=== PATIENT | female | born 1935 | race Caucasian/White ===

== ENCOUNTER 2018-12-23 16:49 | Emergency (ER) | payer MEDICARE, OTHER ==
[2018-12-23 18:32] LABS: #Eosinphils 0.3 thou/uL (0.0-0.7); #Lymphocytes 1.2 thou/uL (1.20-3.40); #Neutrophils 7.3 thou/uL (1.40-6.50); %Basophils 0.3 % (0.0-1.0); %Eosinophils 2.8 % (0.0-10.0); %Lymphocytes 12.4 % (21.0-51.0); %Monocytes 10.3 % (0.0-10.0); %Neutrophils 74.2 % (42.0-75.0); Hemoglobin 11.5 g/dL (12.0-16.0); Mean Corpuscular Hemoglobin 27.2 pg (27.0-31.0); Mean Corpuscular Volume 85.1 fL (78.0-98.0); Mean Platelet Volume 6.9 fL (7.4-10.4); Platelet Count 379 thou/uL (130-400); RBC Distribution Width 13.7 % (11.5-14.5); Red Blood Cell (RBC) Count 4.24 mill/uL (4.20-5.40); White Blood Cell (WBC) Count 9.9 thou/uL (4.8-10.8)
[2018-12-23 18:40] LABS: INR-International Normal Ratio 1.9; Prothrombin Time 21.8 SEC (12.0-14.7)
[2018-12-23 18:41] LABS: PTT 45.7 SEC (22.9-36.1)
--- NOTE | 2018-12-23 18:52 | CT ---
CT BRAIN WITHOUT CONTRAST: HISTORY: Fell today, hit head. The patient is on Coumadin. COMPARISON: 04/26/2017 FINDINGS: There is generalized ventricular and sulcal prominence. 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 There are no signs of intracerebral hemorrhage or extraaxial fluid collections. There is a left frontal scalp hematoma. No underlying fracture. The mastoid air cells and visualized sinuses are clear. IMPRESSION: No acute intracranial abnormalities. POS: RUSLANH
[2018-12-23 18:55] LABS: ALT (SGPT) 21 U/L (8-55); AST (SGOT) 31 U/L (5-34); Alkaline Phosphatase 56 U/L (40-150); Anion Gap 17 mmol/L (10-20); BUN (Urea Nitrogen) 19 mg/dL (9.8-20.1); Calc. Creatinine Clearance 0 mL/min (70-130); Carbon Dioxide 28 mmol/L (23-31); Chloride 96 mmol/L (98-107); Estimated GFR-MDRD 51; Globulin 3.3 g/dL (2.4-3.5); Glucose 177 mg/dL (83-110); Potassium 3.6 mmol/L (3.5-5.1); Protein, Total 7.3 g/dL (6.0-8.3); Sodium 137 mmol/L (136-145)
== END 2018-12-23 18:44 | disposition home or self-care (01) ==
LOC: ERS 16:49
DX: S00.83XA Contusion of other part of head, initial encounter (principal); I48.91 Unspecified atrial fibrillation; E11.9 Type 2 diabetes mellitus without complications; Z79.899 Other long term (current) drug therapy; Z86.73 Personal history of transient ischemic attack (TIA), and cerebral infarction without residual deficits; Z79.01 Long term (current) use of anticoagulants; Z79.84 Long term (current) use of oral hypoglycemic drugs; Z79.891 Long term (current) use of opiate analgesic; W01.198A Fall on same level from slipping, tripping and stumbling with subsequent striking against other object, initial encounter
CPT/HCPCS: 70450; 80053; 85025; 85610; 85730

== ENCOUNTER 2019-02-02 19:14 | Inpatient (IN) | payer MEDICARE ==
--- NOTE | 2019-02-02 21:02 | CT ---
CTA THORAX WITH CONTRAST: 02/02/19 at 8:39 p.m. (Computed Tomographic Angiography, chest(noncoronary) with contrast material, and image postprocessin g) (PE protocol) HISTORY: 83-year-old female with dyspnea and hypoxemia. TECHNIQUE: IV injection of iodinated contrast: Isovue. Scan acquisition timing attempted to coincide with iodinated contrast bolus reaching maximal density in pulmonary arteries. 3D MIP reconstructions. FINDINGS: There is a broad region of alveolar infiltrate involving the right lower lobe, consistent with pneumo ki. There is no pulmonary thromboembolism in the pulmonic trunk, left and right main pulmonary arter ies, their proximal branches, or in the upper lobe peripheral branches. There is breathing motion art ifact at the lower lobes, plus streak artifact from the patient's arms, which were not elevated, nayely ng it difficult to evaluate the peripheral basilar lower lobe pulmonary artery branches, especially o n the right. No thoracic aortic aneurysm or dissection. No pleural effusion. There is mild cardiomega ly with four chamber dilation. No pleural effusion or pneumothorax. Trachea and left and right mainst em bronchi are patent and clear. The branches of the right lower lobe bronchus appear to be narrowed, but this is poorly visualized. IMPRESSION: 1. Evidence for right lower lobe pneumonia. 2. Cardiomegaly. 3. No central pulmonary thromboembolism. jn[] POS: JIN
[2019-02-02] MEDS ORDERED: cefTRIAXone\\ROCEPHIN 1 GM in Sodium Chloride 0.9% 100 ML IVPB SCH (22:30)
[2019-02-02] MEDS ORDERED: Azithromycin 500 MG in Sodium Chloride 0.9% 250 ML 250 ML IVPB SCH (23:00)
[2019-02-02 23:58] VITALS: BMI 26.6
[2019-02-03] MEDS: Acetaminophen 325 MG TAB PO PRN ×2 (01:53→22:42)
[2019-02-03 06:19] LABS: #Lymphocytes 0.7 thou/uL (1.20-3.40); #Monocytes 0.2 thou/uL (0.11-0.59); #Neutrophils 2.7 thou/uL (1.40-6.50); %Basophils 0.6 % (0.0-1.0); %Eosinophils 0.2 % (0.0-10.0); %Lymphocytes 19.4 % (21.0-51.0); %Monocytes 6.6 % (0.0-10.0); %Neutrophils 73.3 % (42.0-75.0); Hemoglobin 12.9 g/dL (12.0-16.0); Mean Corpuscular HGB CONC 32.3 g/dL (32.0-36.0); Mean Corpuscular Hemoglobin 27.3 pg (27.0-31.0); Mean Corpuscular Volume 84.3 fL (78.0-98.0); Mean Platelet Volume 7.6 fL (7.4-10.4); Platelet Count 261 thou/uL (130-400); RBC Distribution Width 14.4 % (11.5-14.5); Red Blood Cell (RBC) Count 4.72 mill/uL (4.20-5.40); White Blood Cell (WBC) Count 3.7 thou/uL (4.8-10.8)
[2019-02-03 06:38] LABS: Anion Gap 14 mmol/L (10-20); BUN (Urea Nitrogen) 22 mg/dL (9.8-20.1); Calc. Creatinine Clearance 47 mL/min (70-130); Calcium 9.5 mg/dL (7.8-10.44); Carbon Dioxide 30 mmol/L (23-31); Chloride 93 mmol/L (98-107); Estimated GFR-MDRD 45; Glucose 396 mg/dL (83-110); Potassium 4.2 mmol/L (3.5-5.1); Sodium 133 mmol/L (136-145)
--- NOTE | 2019-02-03 06:41 | HP ---
PRIMARY CARE DOCTOR: Dr. Carr. CHIEF COMPLAINT: Shortness of breath. HISTORY OF PRESENT ILLNESS: This is an 83-year-old female patient with past medical history of sore throat, atrial fibrillation, diabetes, came to the hospital after having shortness of breath. The symptoms were severe. The patient was not able to do her activities of daily living due to the shortness of breath. The patient presented with low saturation, needing oxygen, to keep saturation of 90%. The patient also has some associated chest pain that seems to be pleuritic, also associated cough. REVIEW OF SYSTEMS: CONSTITUTIONAL: No fever, chills. The patient reported generalized weakness. No ability to do activities of daily living. RESPIRATORY: The patient presented with cough, scant sputum production, and shortness of breath. CARDIOVASCULAR: No chest pain or palpitation. GASTROINTESTINAL: No nausea, no vomiting, diarrhea, or abdominal pain. CENTRAL NERVOUS SYSTEM: No dizziness, headache, or feeling lightheaded. GENITOURINARY: No burning on urination. EXTREMITIES: No leg swelling. All other systems were reviewed and negative except for the findings mentioned above. PAST MEDICAL HISTORY: As mentioned in the HPI. She also has a history of hypertension. SURGICAL HISTORY: Hip replacement and right knee replacement. FAMILY HISTORY: Reviewed and non contributory to current presentation. SOCIAL HISTORY: Lives at home alone. No alcohol. No drugs. No smoking history. ALLERGIES: KNOWN ALLERGIES TO CODEINE, FOOD ALLERGIES, HYDROCODONE, MORPHINE, LATEX. REPORTED MEDICATIONS: 1. Fenofibrate. 2. Warfarin. 3. Byetta. 4. Lisinopril. 5. Hydrochlorothiazide. 6. Quetiapine. 7. Zetia. 8. Digoxin. PHYSICAL EXAMINATION: VITAL SIGNS: On presentation, blood pressure 167/96 with heart rate 85, respiratory rate was 17, temperature 98.8. Pain was 0/10. Oxygen saturation on room air was measured at 93% in ER. GENERAL APPEARANCE: The patient is alert and oriented, not in acute distress. HEENT: Eyes, normal conjunctivae. Moist oral mucosa. Anicteric. No JVD. RESPIRATORY: Bilateral air entry. No rales. No wheezes. Symmetric expansion. CARDIOVASCULAR: Normal rate. Regular rhythm. No murmurs. No gallop. No edema. ABDOMEN: Soft. Normal bowel sounds. MUSCULOSKELETAL: Baseline range of motion and strength. No tenderness. SKIN: Warm, intact. No pallor. No rash. No redness. Peripheral pulses are present. Capillary refill seems to intact. NEUROLOGIC: No evidence of any new focal weakness. Baseline speech. Cranial nerves seems to be intact. PSYCHIATRIC: The patient has good mood. No anxiety. Optimal judgment. IMAGING DATA: Chest CTA was done to rule out pulmonary embolism. The patient has evidence for right lower lobe pneumonia and cardiomegaly. LABORATORY DATA: Reviewed. The patient has white count of 6.4, hemoglobin 9.7 , MCV 82.4, platelet count 236. Coagulation; PT 20.6, PTT 37.7. D-dimer 0.87. Chemistry; sodium 135, potassium 3.9, chloride 94, carbon dioxide 28, anion gap 17, BUN 18, GFR creatinine 0.9, GFR glucose 205, calcium 9.2. LFTs were normal. ASSESSMENT AND PLAN: The patient will be placed in the hospital with following medical problems: 1. Left lower lobe pneumonia seen on the CAT scan. The patient has been started on antibiotics. To justify the symptoms on presentation, we will reconcile her antibiotics as per sensitivity from blood culture. 2. Hyponatremia. Sodium 135, this is minimal. No need for acute intervention at this point. 3. Uncontrolled diabetes, presented with hyperglycemia, reconcile home medications, treat the patient with sliding scale for optimal control. 4. Acute hypoxic respiratory failure. The patient presented with hypoxia needing nasal cannula, oxygen saturation of 90%. This is due to pneumonia. We will treat underlying condition. 5. Uncontrolled blood pressure. The patient presented with systolic blood pressure of 167. Reconcile home medications. We will adjust treatment as needed. We will not treat aggressively due to underlying infection. 6. Deep venous thrombosis prophylaxis. Job ID: [id number] [facility]
[2019-02-03] MEDS: Enoxaparin Sodium 40 MG/0.4 ML SYRINGE SC SCH (07:55)
[2019-02-03] MEDS ORDERED: Warfarin Sodium 1 MG TAB PO SCH (17:00)
--- NOTE | 2019-02-03 17:20 | PDOC.PN ---
- Subjective Encounter Start Date: 02/03/19 Encounter Start Time: 10:00 Pt seen for followup re: pneumonia. says she feels well. Cough+. - Objective Resuscitation Status - Order Detail: 02/02/19 22:16 Resuscitation Status Routine Resuscitation Status: FULL: Full Resuscitation Vital Signs & Weight: Vital Signs (12 hours) Temp Pulse Resp BP Pulse Ox 02/03/19 16:49 97.9 F 119 H 20 132/85 94 L 02/03/19 11:25 97.1 F L 99 20 113/77 95 02/03/19 08:00 98.0 F 92 20 131/85 94 L Weight Weight 175 lb 4 oz I&O: 02/02/19 02/03/19 02/04/19 06:59 06:59 06:59 Intake Total 310 480 Balance 310 480 Result Diagrams: 02/03/19 05:25 02/03/19 05:25 Phys Exam - Physical Examination Constitutional: NAD HEENT: moist MMs Neck: supple Respiratory: clear to auscultation bilateral Cardiovascular: RRR Gastrointestinal: soft Neurological: moves all 4 limbs Psychiatric: normal affect Dx/Plan (1) Pneumonia Code(s): J18.9 - PNEUMONIA, UNSPECIFIED ORGANISM Status: Acute Comment: Improved, switch to oral antibiotics (2) Atrial fibrillation Code(s): I48.91 - UNSPECIFIED ATRIAL FIBRILLATION Status: Chronic Comment: continue digoxin, warfarin (3) DM2 (diabetes mellitus, type 2) Status: Chronic Comment: start accuchecks, insulin sliding scale (4) Acute respiratory failure with hypoxia Code(s): J96.01 - ACUTE RESPIRATORY FAILURE WITH HYPOXIA Status: Resolved - Plan * . Review of Systems - Review of Systems Constitutional: negative: fever, chills, sweats, weakness, malaise Respiratory: Cough, Sputum. negative: Dry, Shortness of Breath, Hemoptysis, SOB with Excertion, Pleuritic Pain, Wheezing Cardiovascular: negative: chest pain, palpitations, orthopnea, paroxysmal nocturnal dyspnea, edema, light headedness - Medications/Allergies Allergies/Adverse Reactions: Allergies Allergy/AdvReac Type Severity Reaction Status Date / Time No Known Allergies Allergy Verified 02/03/19 00:02 Medications: Current Medications Acetaminophen (Tylenol) 650 mg PO Q4H PRN PRN Reason: Headache/Fever/Mild Pain (1-3) Last Admin: 02/03/19 01:53 Dose: 650 mg Cefdinir (Omnicef) 300 mg PO BID [facility] Digoxin (Lanoxin) 0.125 mg PO DAILY [facility] Ezetimibe (Zetia) 10 mg PO DAILY [facility] Enoxaparin Sodium (Lovenox) 40 mg SC 0900 [facility] Last Admin: 02/03/19 07:55 Dose: 40 mg Hydrochlorothiazide (Hydrochlorothiazide) 25 mg PO DAILY [facility] Azithromycin 500 mg/ Sodium (Chloride) 250 mls @ 250 mls/hr IVPB Q24HR [facility] Non-Formulary Medication (Exenatide [Byetta]) 10 mcg SC BID-AC [facility] Non-Formulary Medication (Fenofibrate [Fenofibrate]) 160 mg PO HS [facility] Quetiapine Fumarate (Seroquel) 25 mg PO DAILY [facility]
[2019-02-03] MEDS ORDERED: Dextrose 5% in Water 1,000 ML IV PRN (17:23)
[2019-02-03] MEDS ORDERED: Dextrose 50% Abboject 50 ML SYRINGE SLOW IVP PRN (17:23)
[2019-02-03] MEDS ORDERED: HumaLOG 300 UNITS/3 ML VIAL SC PRN ×3 (17:23→22:09)
[2019-02-03] MEDS: Cefdinir 300 MG CAP PO SCH (20:30)
[2019-02-03] MEDS ORDERED: Insulin Glargine 15 UNITS in Pre-Filled Syringe 1 EACH SC SCH (22:30)
[2019-02-03] MEDS ORDERED: cefTRIAXone\\ROCEPHIN 1 GM in Sodium Chloride 0.9% 100 ML IVPB SCH (22:30)
[2019-02-03] MEDS ORDERED: Azithromycin 500 MG in Sodium Chloride 0.9% 250 ML 250 ML IVPB SCH (23:00)
[2019-02-04 04:02] VITALS: TEMP 97.6
[2019-02-04 06:14] LABS: INR-International Normal Ratio 1.8; Prothrombin Time 21.1 SEC (12.0-14.7)
[2019-02-04 07:23] VITALS: BP 137/84
[2019-02-04] MEDS ORDERED: Exenatide [Byetta] 10 MCG SC SCH (07:30)
[2019-02-04] MEDS: Enoxaparin Sodium 40 MG/0.4 ML SYRINGE SC SCH (08:35)
[2019-02-04] MEDS: Cefdinir 300 MG CAP PO SCH (08:35)
[2019-02-04] MEDS ORDERED: Digoxin 0.125 MG TAB PO SCH (09:00)
[2019-02-04] MEDS ORDERED: Fenofibrate Nanocrystallized 145 MG TAB PO SCH (09:00)
[2019-02-04] MEDS ORDERED: Ezetimibe 10 MG TAB PO SCH (09:00)
[2019-02-04] MEDS ORDERED: Lisinopril 10 MG TAB PO SCH (09:00)
[2019-02-04] MEDS ORDERED: Hydrochlorothiazide 25 MG TAB PO SCH (09:00)
--- NOTE | 2019-02-05 05:57 | DIS ---
DATE OF ADMISSION: 02/02/2019 DATE OF DISCHARGE: 02/04/2019 PRIMARY CARE PROVIDER: Waylon Robertson MD DISCHARGE DIAGNOSES: 1. Pneumonia. 2. Hyponatremia. CONDITION OF PATIENT ON THE DAY OF DISCHARGE: Stable. I assessed Ms. Julien on the day of discharge. She denies any chest pain or shortness of breath. Vital signs are stable. S1 and S2 are heard, regular. Lungs are clear to auscultation bilaterally. DISCHARGE MEDICATIONS: 1. Digoxin 125 mcg daily. 2. Byetta 10 mcg subcutaneously two times a day. 3. Zetia 10 mg daily. 4. Fenofibrate 160 mg at bedtime. 5. Hydrochlorothiazide 25 mg daily. 6. Lisinopril 10 mg daily. 7. Quetiapine 25 mg daily. 8. Warfarin as directed. 9. Azithromycin 250 mg daily for 4 more days. 10. Cefdinir 300 mg 2 times a day for 10 days. HOSPITAL COURSE: Ms. Julien is a pleasant 83-year-old lady, who was admitted to [facility] on February 02, 2019, for pneumonia. Please refer to Dr. Tran's history and physical note dated February 03, 2019 for further details. She improved with antibiotics. She is being discharged home on oral antibiotics. She is advised to follow up with her primary care provider for INR checks while she is on the antibiotics. Many thanks for allowing me to participate in your patient's care. Please feel free to contact me with any questions or concerns. DISCHARGE DESTINATION: Home. TOTAL AMOUNT OF TIME FOR COORDINATING THIS DISCHARGE: 31 minutes. Job ID: [id number]
== END 2019-02-04 15:06 | disposition home or self-care (01) | DRG 193 ==
LOC: ERS 19:14 → T4-B 21:00 → OBSVTOIN 23:47
PROVIDERS: ADMIT Emergency Medicine; ATTEND Emergency Medicine
DX: J18.9 Pneumonia, unspecified organism (principal); J96.01 Acute respiratory failure with hypoxia; E87.1 Hypo-osmolality and hyponatremia; E11.9 Type 2 diabetes mellitus without complications; I10 Essential (primary) hypertension; I48.91 Unspecified atrial fibrillation; Z96.651 Presence of right artificial knee joint; Z96.649 Presence of unspecified artificial hip joint; Z88.5 Allergy status to narcotic agent; Z91.040 Latex allergy status
CPT/HCPCS: 36415; 36416; 71275; 80048; 85025; 85610; 87040; 96365; J0456; J0696; J1650; J1825; J1956; J7050

== ENCOUNTER 2019-10-28 17:37 | Emergency (ER) | payer MEDICARE ==
[2019-10-28 18:27] LABS: #Eosinphils 0.2 thou/uL (0.0-0.7); #Lymphocytes 1.3 thou/uL (1.20-3.40); #Monocytes 0.9 thou/uL (0.11-0.59); #Neutrophils 5.3 thou/uL (1.40-6.50); %Basophils 0.6 % (0.0-1.0); %Eosinophils 2.4 % (0.0-10.0); %Lymphocytes 16.3 % (21.0-51.0); %Monocytes 12.1 % (0.0-10.0); %Neutrophils 68.6 % (42.0-75.0); Hemoglobin 12.5 g/dL (12.0-16.0); Mean Corpuscular HGB CONC 33.5 g/dL (32.0-36.0); Mean Corpuscular Volume 89.3 fL (78.0-98.0); Mean Platelet Volume 6.3 fL (7.4-10.4); Platelet Count 221 thou/uL (130-400); RBC Distribution Width 12.8 % (11.5-14.5); Red Blood Cell (RBC) Count 4.16 mill/uL (4.20-5.40); White Blood Cell (WBC) Count 7.8 thou/uL (4.8-10.8)
[2019-10-28 18:47] LABS: Anion Gap 10 mmol/L (10-20); BUN (Urea Nitrogen) 22 mg/dL (9.8-20.1); Bilirubin, Total 0.7 mg/dL (0.2-1.2); Calc. Creatinine Clearance 0 mL/min (70-130); Calcium 9.3 mg/dL (7.8-10.44); Carbon Dioxide 33 mmol/L (23-31); Chloride 98 mmol/L (98-107); Estimated GFR-MDRD 52; Glucose 266 mg/dL (83-110); Potassium 3.8 mmol/L (3.5-5.1); Protein, Total 6.7 g/dL (6.0-8.3); Sodium 137 mmol/L (136-145)
[2019-10-28 18:48] LABS: ALT (SGPT) 66 U/L (8-55); AST (SGOT) 47 U/L (5-34); Alkaline Phosphatase 95 U/L (40-110); Globulin 2.7 g/dL (2.4-3.5)
[2019-10-28 18:55] LABS: Bilirubin Negative (Negative); Blood, Urine 1+ (Negative); Clarity Clear (Clear); Glucose, Urine (Dipstick) Normal (Negative); Leukocyte 75 Leu/uL (Negative); Nitrite Negative (Negative); Protein, Urine (Dipstick) 200 mg/dL (Neg-Trace); Squamous Epithelial 0-3 HPF (0-3); Urobilinogen Normal mg/dL (Less than 2)
[2019-10-28 18:56] LABS: Bacteria/HPF 1+ HPF (None Seen)
== END 2019-10-28 20:18 | disposition home or self-care (01) ==
LOC: ERS 17:37
DX: R41.0 Disorientation, unspecified (principal); I48.91 Unspecified atrial fibrillation; E11.9 Type 2 diabetes mellitus without complications; Z86.73 Personal history of transient ischemic attack (TIA), and cerebral infarction without residual deficits
CPT/HCPCS: 51701; 80053; 81003; 81015; 85025; A4353